=== PATIENT | female | born 2000 | race Caucasian/White ===

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

== ENCOUNTER 2020-01-16 17:23 | Emergency (ER) | payer BC, MEDICAID ==
--- NOTE | 2020-01-16 18:22 | ER Document Report ---
ED Medical Screen (RME) - General Chief Complaint: Numbness Stated Complaint: LEG NUMBNESS/PAIN Time Seen by Provider: 01/16/20 18:15 Mode of Arrival: Ambulatory Information source: Patient Notes: 19-year-old female presents with complaints of numbness to her left lower leg for the past week. She reports she cannot feel anything. Patient reports she still little bit better but is been limping around all week at [employer] where she works. She denies injury to leg. Denies other symptoms such as fever vomiting diarrhea. Patient's mother is also here with an abscess. Mother has history of diabetes. Pedal pulses +3 cap refill less than 2 seconds. No obvious injury patient able to feel pinpoint test. Left lower leg is weaker than right. I have greeted and performed a rapid initial assessment of this patient. A comprehensive ED assessment and evaluation of the patient, analysis of test results and completion of the medical decision making process will be conducted by additional ED providers. TRAVEL OUTSIDE OF THE [place] IN LAST 30 DAYS: No - Related Data Allergies/Adverse Reactions: No Known Allergies Allergy (Verified 09/22/18 12:33) Past Medical History Renal/ Medical History: Denies: Hx Peritoneal Dialysis - Immunizations Immunizations up to date: Yes Hx Diphtheria, Pertussis, Tetanus Vaccination: Yes Physical Exam - Vital signs Vitals: Temp 98.2 F 01/16/20 18:08 Course - Vital Signs Vital signs: Temp Pulse Resp BP Pulse Ox 98.2 F 01/16/20 18:08
[2020-01-16 18:52] LABS: ABSOLUTE LYMPHOCYTES (AUTO) 2.2 10^3/uL (0.5-4.7); ABSOLUTE MONOCYTES (AUTO) 0.6 10^3/uL (0.1-1.4); ABSOLUTE NEUT (AUTO) 4.5 10^3/uL (1.7-8.2); BASOPHILS % (AUTO) 0.3 % (0-2); EOSINOPHILS % (AUTO) 0.5 % (0-6); HEMATOCRIT 41.9 % (36.0-47.0); HEMOGLOBIN 14.7 g/dL (12.0-15.5); LYMPHOCYTES % (AUTO) 29.9 % (13-45); MEAN CORPUSCULAR HEMOGLOBIN 34.4 pg (27.0-33.4); MEAN CORPUSCULAR VOLUME 98 fl (80-97); MONOCYTES % (AUTO) 8.2 % (3-13); PLATELET COUNT 214 10^3/uL (150-450); RED BLOOD COUNT 4.26 10^6/uL (3.72-5.28); RED CELL DISTRIBUTION WIDTH 13.5 % (11.5-14.0); SEGMENTED NEUTROPHILS % (AUTO) 61.1 % (42-78); TOTAL CELLS COUNTED % (AUTO) 100 %; WHITE BLOOD COUNT 7.4 10^3/uL (4.0-10.5)
--- NOTE | 2020-01-16 18:55 | RADIOLOGY REPORT (SQ) ---
EXAM DESCRIPTION: TIBIA FIBULA LEFT IMAGES COMPLETED DATE/TIME: 01/16/2020 5:41 pm REASON FOR STUDY: numbness COMPARISON: None. NUMBER OF VIEWS: Two views. TECHNIQUE: Two radiographic images acquired of the left tibia and fibula to include the knee and ank le in at least one projection. LIMITATIONS: None. FINDINGS: MINERALIZATION: Normal. BONES: No acute fracture or dislocation. No worrisome bone lesions. SOFT TISSUES: No obvious swelling or foreign body. OTHER: No other significant finding. IMPRESSION: NEGATIVE STUDY OF THE LEFT TIBIA AND FIBULA. NO RADIOGRAPHIC EVIDENCE OF ACUTE INJURY. TECHNICAL DOCUMENTATION: JOB ID: [id number] [employer]- All Rights Reserved Reading location - IP/workstation name: [email or web address]
[2020-01-16 19:18] LABS: ALBUMIN 4.7 g/dL (3.5-5.0); ALKALINE PHOSPHATASE 50 U/L (38-126); ANION GAP 5 (5-19); APPEARANCE,URINE SLIGHTLY-CLOUDY; ASPARTATE AMINO TRANSFERASE 21 U/L (14-36); BILIRUBIN,TOTAL 0.9 mg/dL (0.2-1.3); BILIRUBIN,URINE NEGATIVE (NEGATIVE); BLOOD UREA NITROGEN 13 mg/dL (7-20); CALCIUM 9.5 mg/dL (8.4-10.2); CARBON DIOXIDE 30 mmol/L (22-30); CHLORIDE 102 mmol/L (98-107); COLOR,URINE YELLOW; GLUCOSE 101 mg/dL (75-110); GLUCOSE, URINE NEGATIVE (NEGATIVE); KETONES,URINE NEGATIVE (NEGATIVE); POTASSIUM 4.4 mmol/L (3.6-5.0); TOTAL PROTEIN 7.7 g/dL (6.3-8.2)
[2020-01-16 19:19] LABS: ADD MANUAL MICROSCOPIC YES; LEUKOCYTE ESTERASE,URINE NEGATIVE (NEGATIVE); NITRITE,URINE NEGATIVE (NEGATIVE); PROTEIN,URINE NEGATIVE (NEGATIVE); URINE SPECIFIC GRAVITY 1.018
[2020-01-16 19:20] LABS: AMORPHOUS SEDIMENT,UR 1+
[2020-01-16 20:22] VITALS: BP 107/65
--- NOTE | 2020-01-16 20:54 | RADIOLOGY REPORT (SQ) ---
CT HEAD WITHOUT IV CONTRAST EXAM DATE: 01/16/2020 7:52 PM CDT HISTORY: Left leg paresthesias. COMPARISON: None. TECHNIQUE: CT scan of the brain was performed without IV contrast. This exam was performed according to our departmental dose-optimization program, which includes automated exposure control, adjustment of the mA and/or kV according to patient size and/or use of iterative reconstruction technique. FINDINGS: The ventricles, cisterns, and sulci are age-appropriate. No evidence of acute infarction, intracranial hemorrhage, extra-axial fluid collection, or midline shift. No air-fluid levels are seen in the paranasal sinuses to suggest acute sinusitis. No depressed skull fracture. IMPRESSION: No acute intracranial findings.
--- NOTE | 2020-01-16 21:06 | ER Document Report ---
ED Extremity Problem, Lower - General Chief Complaint: Numbness Stated Complaint: LEG NUMBNESS/PAIN Time Seen by Provider: 01/16/20 18:15 Mode of Arrival: Ambulatory Information source: Patient TRAVEL OUTSIDE OF THE [place] IN LAST 30 DAYS: No - HPI Notes: Patient planes of left lower extremity paresthesias. She states for several days she feels that she is got jxpa-erb-lgbwuif in her left lower leg mainly from the knee down to the foot. Nothing makes them better or worse. She states when she walks she feels sometimes like it is weak and going to give way. She has never had anything similar in the past. She does not know of any trauma. No other recent illnesses or problems. This sensation does not radiate up the left leg from the foot to the knee. It is mainly a qyqg-sqb-aorbvry and lack of sensation that she complains of she states there is very minimal pain but some discomfort. She denies any headache. - Related Data Allergies/Adverse Reactions: No Known Allergies Allergy (Verified 09/22/18 12:33) Past Medical History - General Information source: Patient - Social History Smoking Status: Current Every Day Smoker Frequency of alcohol use: None Drug Abuse: None Family History: Reviewed & Not Pertinent Patient has homicidal ideation: No Renal/ Medical History: Denies: Hx Peritoneal Dialysis - Immunizations Immunizations up to date: Yes Hx Diphtheria, Pertussis, Tetanus Vaccination: Yes Review of Systems - Review of Systems Constitutional: denies: Chills, Fever Cardiovascular: denies: Chest pain, Palpitations Respiratory: denies: Cough, Short of breath -: Yes All other systems reviewed and negative Physical Exam - Vital signs Vitals: Temp 98.2 F 01/16/20 18:08 Interpretation: Normal - General General appearance: Appears well, Alert - HEENT Head: Normocephalic, Atraumatic Eyes: Normal Pupils: PERRL - Respiratory Respiratory status: No respiratory distress Chest status: Nontender Breath sounds: Normal Chest palpation: Normal - Cardiovascular Rhythm: Regular Heart sounds: Normal auscultation Murmur: No - Abdominal Inspection: Normal Distension: No distension Bowel sounds: Normal Tenderness: Nontender Organomegaly: No organomegaly - Back Back: Normal, Nontender - Extremities General upper extremity: Normal inspection, Nontender, Normal color, Normal ROM, Normal temperature General lower extremity: Normal inspection, Nontender, Normal color, Normal ROM, Normal temperature, Normal weight bearing. No: Abdi's sign - Neurological Neuro grossly intact: Yes Cognition: Normal Orientation: AAOx4 [place] Coma Scale Eye Opening: Spontaneous [place] Coma Scale Verbal: Oriented [place] Coma Scale Motor: Obeys Commands [place] Coma Scale Total: 15 Speech: Normal Motor strength normal: LUE, RUE, LLE, RLE Sensory: Normal Notes: Neurological exam of the left lower extremity shows patient to have equal patellar and Achilles reflexes when compared to the right side. These reflexes are normal. She has a 2+ dorsalis pedis pulse in both lower extremities. She can flex and extend the ankle and all toes on both lower extremities. Patient ambulated about the ED normally for me. Exam of the left lower extremity shows no swelling no induration no redness and no tenderness. The exam of the left lower extremity is unremarkable. - Psychological Associated symptoms: Normal affect, Normal mood - Skin Skin Temperature: Warm Skin Moisture: Dry Skin Color: Normal Course - Re-evaluation Re-evalutation: 01/16/20 21:04 Patient presents with paresthesias of the left lower extremity. There is no evidence of stroke. There is no abnormal neurological exam. The rest exam is also unremarkable. No evidence of infection. No evidence of DVT. No evidence and history or exam of anything that would explain a nerve compression such as a peroneal nerve compression. She describes the xibw-yia-wczylxe and numbness as the entire left lower extremity from the knee to the foot which would not be in a dermatological pattern. At this time I am unsure the diagnosis but I will refer her to orthopedics for further evaluation. - Vital Signs Vital signs: Temp Pulse Resp BP Pulse Ox 98.2 F 104 H 16 107/65 95 01/16/20 20:21 01/16/20 20:21 01/16/20 20:21 01/16/20 20:21 01/16/20 20:21 - Laboratory Result Diagrams: 01/16/20 18:35 01/16/20 18:35 Laboratory results interpreted by me: 01/16/20 01/16/20 01/16/20 18:35 18:35 18:35 MCV 98 H MCH 34.4 H Sodium 136.5 L Urine Urobilinogen 8.0 H - Diagnostic Test Radiology reviewed: Image reviewed, Reports reviewed Discharge - Discharge Clinical Impression: Paresthesia and pain of left extremity Condition: Stable Disposition: HOME, SELF-CARE Instructions: Numbness or Paresthesia ([facility]) Additional Instructions: Please call orthopedics as soon as possible to arrange follow-up Forms: Return to Work Referrals: FRANCIE ENRIQUEZ JR, DO [ACTIVE PROVISIONAL STAFF] - Follow up in 1 week
== END 2020-01-16 21:28 | disposition home or self-care (01) ==
LOC: ER 17:23
DX: R20.2 Paresthesia of skin (principal); R53.1 Weakness; F17.200 Nicotine dependence, unspecified, uncomplicated
CPT/HCPCS: 36415; 70450; 80053; 81001; 81025; 85025; 99284